=== PATIENT | male | born 1945 | race Caucasian/White ===

== ENCOUNTER → 2016-04-03 | Outpatient (CLI) | payer MEDICARE, OTHER ==
[~2016-04-03] MED LIST: AMLODIPINE BESYL5 MG PO; FARXIGA5 MG PO; FINASTERIDE5 MG PO; HYDROCHLOROTHIA25 MG PO; IRBESARTAN300 MG PO; METFORMIN HCL1000 MG PO; TAMSULOSIN HCL0.4 MG PO; TRULICITY0.75 MG/0. SC
== END | disposition home or self-care (01) ==
LOC: CDC 08:16
DX: R94.31 Abnormal electrocardiogram [ECG] [EKG] (principal); I44.4 Left anterior fascicular block; N40.1 Benign prostatic hyperplasia with lower urinary tract symptoms; N21.0 Calculus in bladder; R31.0 Gross hematuria
CPT/HCPCS: 93000

== ENCOUNTER 2016-04-10 05:10 | Day surgery (SDC) | payer OTHER ==
[~2016-04-10] VITALS: Ht 182.9 cm; Wt 94.4 kg
[2016-04-10] VITALS (8 sets, daily range): BP systolic 134–172; BP diastolic 84–98
[2016-04-10 06:35] LABS: POINT-OF-CARE METER ID UU14174212
[2016-04-11 03:20] VITALS: BP 137/75
[2016-04-11 08:00] VITALS: BP 135/98
== END 2016-04-11 11:48 | disposition home or self-care (01) ==
LOC: SDC 05:10 → 2SOUTH 09:00 → 2EAST 09:00 → SDC 09:48 → 2EAST 18:22
PROVIDERS: Urology
DX: N40.1 Benign prostatic hyperplasia with lower urinary tract symptoms (principal); N32.0 Bladder-neck obstruction; N21.0 Calculus in bladder; N32.3 Diverticulum of bladder; R31.0 Gross hematuria; Z87.440 Personal history of urinary (tract) infections; E11.9 Type 2 diabetes mellitus without complications; Z79.84 Long term (current) use of oral hypoglycemic drugs; F17.210 Nicotine dependence, cigarettes, uncomplicated; Z80.3 Family history of malignant neoplasm of breast; Z82.49 Family history of ischemic heart disease and other diseases of the circulatory system
CPT/HCPCS: 82365 90; 82948; 88305; G0378; J0690; J1580; J2250; J3010; J7050; J7120

== ENCOUNTER 2017-05-12 07:46 | Emergency (ER) | payer OTHER ==
[~2017-05-12] VITALS: Ht 182.9 cm; Wt 101.2 kg
[2017-05-12] MEDS ORDERED: MOTRIN600 MG PO (10:16)
[2017-05-12 11:12] VITALS: BP 131/74
== END 2017-05-12 11:13 | disposition home or self-care (01) ==
LOC: EME 07:46
DX: S22.32XA Fracture of one rib, left side, initial encounter for closed fracture (principal); S27.329A Contusion of lung, unspecified, initial encounter; W18.30XA Fall on same level, unspecified, initial encounter; E78.5 Hyperlipidemia, unspecified; E11.9 Type 2 diabetes mellitus without complications; Z79.84 Long term (current) use of oral hypoglycemic drugs; I10 Essential (primary) hypertension; F17.200 Nicotine dependence, unspecified, uncomplicated
CPT/HCPCS: 71046; 71250; 99281; 99284; J1885

== ENCOUNTER → 2017-08-12 | Outpatient (CLI) | payer MEDICARE, OTHER ==
[~2017-08-12] MED LIST changes: +MOTRIN600 MG PO
== END | disposition home or self-care (01) ==
LOC: CDC 08:12
DX: Z01.810 Encounter for preprocedural cardiovascular examination (principal); N20.0 Calculus of kidney; R94.31 Abnormal electrocardiogram [ECG] [EKG]
CPT/HCPCS: 93000

== ENCOUNTER 2017-08-23 05:41 | Inpatient (IN) | payer OTHER ==
[~2017-08-23] VITALS: Ht 182.9 cm; Wt 98.9 kg
[~2017-08-23 05:41] MED LIST changes: -TRULICITY0.75 MG/0. SC; +TRULICITY1.5 MG/0.5 SC
[2017-08-23 06:19] LABS: HEMATOCRIT 40.2 % (38.0-50.0); HEMOGLOBIN 13.7 G/DL (12.5-16.6); MCH 30.4 PG (29.0-34.0); MCHC 34.1 G/DL (30.0-36.0); MCV 89.3 FL (86-99); PLATELET COUNT 256 K/uL (156-360); RBC DIS.WIDTH-CV 13.8 % (11.8-14.6); RBC DIS.WIDTH-SD 45.1 % (39-53); WHITE BLOOD COUNT 22.2 K/uL (4.1-10.2)
[2017-08-23 06:27] LABS: CHLORIDE 99 mEq/L (99-109); POTASSIUM 4.1 mEq/L (3.7-5.4); SODIUM 137 mEq/L (136-147)
[2017-08-23 06:29] LABS: GLUCOSE 292 mg/dL (70-99); TOTAL PROTEIN 6.3 g/dL (6.4-8.3)
[2017-08-23 06:31] LABS: TOTAL BILIRUBIN 0.7 mg/dL (0.0-1.0)
[2017-08-23 06:33] LABS: ALKALINE PHOSPHATASE 61 IU/L (3-129); GFR ESTIMATE (CALCULATED) 35 mL/min/ (58.99-99999)
[2017-08-23 06:34] LABS: UREA NITROGEN (BUN) 30 mg/dL (9-23)
[2017-08-23 06:35] LABS: AST (GOT) 20 IU/L (2-34)
[2017-08-23 06:36] LABS: ALT (GPT) 34 IU/L (3-49); LIPASE 34 U/L (1.0-51.0)
[2017-08-23 06:39] LABS: TROP-I INTERPRETATION NEGATIVE; TROPONIN-I 0.03 ng/mL (0.0-0.30)
[2017-08-23] MEDS ORDERED: GLIPIZIDE XL5 MG PO (08:26)
[2017-08-23] MEDS ORDERED: LIPITOR20 MG PO (08:27)
[2017-08-23] MEDS ORDERED: COZAAR50 MG PO (08:27)
[2017-08-23 09:14] LABS: APPEARANCE SL.HAZY ((CLEAR)); BILIRUBIN NEGATIVE; BLOOD LARGE; COLOR YELLOW ((YELLOW)); GLUCOSE (STRIP) >=500; KETONES NEGATIVE; LEUKOCYTES MODERATE; NITRITE NEGATIVE; PROTEIN (STRIP) 30; UROBILINOGEN 0.2 MG/DL (0.2-1.0)
[2017-08-23 09:20] LABS: BACTERIA RARE /HPF; CALCIUM OXALATE CRYSTALS 2+ /HPF; EPITHELIAL CELLS RARE /HPF; MUCUS TRACE /LPF; RED BLOOD CELLS TNTC /HPF (0-5); UCUL ADDED? YES; URIC ACID CRYSTALS 1+ /HPF; WHITE BLOOD CELLS TNTC /HPF (0-5)
[2017-08-23 10:00] VITALS: BP 158/97
[2017-08-23 12:17] LABS: HEMATOCRIT 35.3 % (38.0-50.0); HEMOGLOBIN 11.9 G/DL (12.5-16.6); MCH 29.8 PG (29.0-34.0); MCHC 33.7 G/DL (30.0-36.0); MCV 88.5 FL (86-99); PLATELET COUNT 218 K/uL (156-360); RBC DIS.WIDTH-CV 13.7 % (11.8-14.6); RBC DIS.WIDTH-SD 44.3 % (39-53); RED BLOOD COUNT 3.99 M/uL (4.00-5.50); WHITE BLOOD COUNT 19.6 K/uL (4.1-10.2)
[2017-08-23 14:38] VITALS: BP 129/77
[2017-08-23 16:26] VITALS: BP 128/81
[2017-08-23 17:52] LABS: HEMATOCRIT 32.7 % (38.0-50.0); HEMOGLOBIN 11.1 G/DL (12.5-16.6); MCH 29.8 PG (29.0-34.0); MCHC 33.9 G/DL (30.0-36.0); MCV 87.9 FL (86-99); PLATELET COUNT 205 K/uL (156-360); RBC DIS.WIDTH-CV 13.7 % (11.8-14.6); RED BLOOD COUNT 3.72 M/uL (4.00-5.50); WHITE BLOOD COUNT 15.2 K/uL (4.1-10.2)
[2017-08-23 19:09] VITALS: BP 130/81
[2017-08-23 22:33] VITALS: BP 143/82
[2017-08-24 00:41] LABS: HEMATOCRIT 30.5 % (38.0-50.0); HEMOGLOBIN 10.6 G/DL (12.5-16.6); MCH 30.8 PG (29.0-34.0); MCHC 34.8 G/DL (30.0-36.0); MCV 88.7 FL (86-99); PLATELET COUNT 191 K/uL (156-360); RBC DIS.WIDTH-CV 13.8 % (11.8-14.6); RBC DIS.WIDTH-SD 44.7 % (39-53); RED BLOOD COUNT 3.44 M/uL (4.00-5.50); WHITE BLOOD COUNT 13.8 K/uL (4.1-10.2)
[2017-08-24 03:24] VITALS: BP 154/90
[2017-08-24 05:27] LABS: HEMATOCRIT 32.8 % (38.0-50.0); HEMOGLOBIN 11.2 G/DL (12.5-16.6); MCHC 34.1 G/DL (30.0-36.0); MCV 87.9 FL (86-99); PLATELET COUNT 210 K/uL (156-360); RBC DIS.WIDTH-CV 13.9 % (11.8-14.6); RBC DIS.WIDTH-SD 44.5 % (39-53); RED BLOOD COUNT 3.73 M/uL (4.00-5.50); WHITE BLOOD COUNT 14.2 K/uL (4.1-10.2)
[2017-08-24 06:01] LABS: CHLORIDE 109 MEQ/L (99-109); POTASSIUM 4.1 MEQ/L (3.7-5.4); SODIUM 141 MEQ/L (136-147); UREA NITROGEN (BUN) 19 mg/dL (9-23)
[2017-08-24 06:17] LABS: CREATININE 1.1 MG/DL (0.6-1.3); GFR ESTIMATE (CALCULATED) > 59 mL/min/ (58.99-99999); GLUCOSE 143 mg/dL (70-99)
[2017-08-24 07:01] VITALS: BP 160/90
[2017-08-24 11:11] VITALS: BP 132/79
[2017-08-24 13:20] LABS: HEMATOCRIT 30.7 % (38.0-50.0); HEMOGLOBIN 10.4 G/DL (12.5-16.6); MCH 30.1 PG (29.0-34.0); MCHC 33.9 G/DL (30.0-36.0); MCV 88.7 FL (86-99); PLATELET COUNT 185 K/uL (156-360); RBC DIS.WIDTH-SD 45.5 % (39-53); RED BLOOD COUNT 3.46 M/uL (4.00-5.50); WHITE BLOOD COUNT 12.7 K/uL (4.1-10.2)
[2017-08-24 15:15] VITALS: BP 140/83
[2017-08-24 17:51] LABS: HEMATOCRIT 30.6 % (38.0-50.0); HEMOGLOBIN 10.5 G/DL (12.5-16.6); MCH 30.4 PG (29.0-34.0); MCHC 34.3 G/DL (30.0-36.0); MCV 88.7 FL (86-99); PLATELET COUNT 186 K/uL (156-360); RBC DIS.WIDTH-CV 13.8 % (11.8-14.6); RBC DIS.WIDTH-SD 44.8 % (39-53); RED BLOOD COUNT 3.45 M/uL (4.00-5.50); WHITE BLOOD COUNT 13.1 K/uL (4.1-10.2)
[2017-08-24 19:21] VITALS: BP 143/85
[2017-08-24 23:20] VITALS: BP 142/89
[2017-08-25 00:42] LABS: HEMATOCRIT 28.5 % (38.0-50.0); HEMOGLOBIN 9.8 G/DL (12.5-16.6); MCH 30.7 PG (29.0-34.0); MCHC 34.4 G/DL (30.0-36.0); MCV 89.3 FL (86-99); PLATELET COUNT 181 K/uL (156-360); RBC DIS.WIDTH-CV 13.8 % (11.8-14.6); RBC DIS.WIDTH-SD 45.4 % (39-53); RED BLOOD COUNT 3.19 M/uL (4.00-5.50); WHITE BLOOD COUNT 12.4 K/uL (4.1-10.2)
[2017-08-25 03:48] VITALS: BP 138/85
[2017-08-25 06:41] LABS: HEMATOCRIT 31.1 % (38.0-50.0); HEMOGLOBIN 10.4 G/DL (12.5-16.6); MCH 29.9 PG (29.0-34.0); MCHC 33.4 G/DL (30.0-36.0); MCV 89.4 FL (86-99); PLATELET COUNT 190 K/uL (156-360); RBC DIS.WIDTH-CV 13.9 % (11.8-14.6); RED BLOOD COUNT 3.48 M/uL (4.00-5.50)
[2017-08-25 07:39] VITALS: BP 161/95
[2017-08-25 11:39] VITALS: BP 127/84
[2017-08-25 13:27] LABS: HEMATOCRIT 31.9 % (38.0-50.0); HEMOGLOBIN 10.5 G/DL (12.5-16.6); MCH 29.7 PG (29.0-34.0); MCHC 32.9 G/DL (30.0-36.0); MCV 90.4 FL (86-99); PLATELET COUNT 207 K/uL (156-360); RBC DIS.WIDTH-SD 45.9 % (39-53); RED BLOOD COUNT 3.53 M/uL (4.00-5.50); WHITE BLOOD COUNT 12.9 K/uL (4.1-10.2)
[2017-08-25 16:25] VITALS: BP 149/91
[2017-08-25 18:16] LABS: HEMATOCRIT 30.8 % (38.0-50.0); HEMOGLOBIN 10.3 G/DL (12.5-16.6); MCH 29.9 PG (29.0-34.0); MCHC 33.4 G/DL (30.0-36.0); MCV 89.3 FL (86-99); PLATELET COUNT 207 K/uL (156-360); RBC DIS.WIDTH-CV 13.8 % (11.8-14.6); RBC DIS.WIDTH-SD 45.2 % (39-53); RED BLOOD COUNT 3.45 M/uL (4.00-5.50); WHITE BLOOD COUNT 12.3 K/uL (4.1-10.2)
[2017-08-25 19:27] VITALS: BP 158/85
[2017-08-25 23:30] VITALS: BP 158/85
[2017-08-26 02:56] VITALS: BP 154/84
[2017-08-26 07:16] VITALS: BP 133/86
[2017-08-26 15:52] VITALS: BP 124/73
[2017-08-26] MEDS ORDERED: LOSARTAN POTAS100 MG PO (16:16)
[2017-08-26] MEDS ORDERED: TYLENOL REGULA325 MG PO (16:18)
== END 2017-08-26 17:44 | disposition home or self-care (01) | DRG 699 ==
LOC: EME → EDBD 05:41 → EME 05:41 → EDOF 08:08 → 5EAST 08:08 → ENRESERV 08:25 → 5EAST 09:46
PROVIDERS: Emergency Medicine; Family Medicine; Nurse Practitioner Adult Health
DX: S37.012A Minor contusion of left kidney, initial encounter (principal); N39.0 Urinary tract infection, site not specified; I95.9 Hypotension, unspecified; E11.9 Type 2 diabetes mellitus without complications; B95.2 Enterococcus as the cause of diseases classified elsewhere; R09.02 Hypoxemia; I10 Essential (primary) hypertension; E78.5 Hyperlipidemia, unspecified; N40.1 Benign prostatic hyperplasia with lower urinary tract symptoms; F17.200 Nicotine dependence, unspecified, uncomplicated; W18.30XA Fall on same level, unspecified, initial encounter; Y92.009 Unspecified place in unspecified non-institutional (private) residence as the place of occurrence of the external cause; Z87.440 Personal history of urinary (tract) infections; Z87.442 Personal history of urinary calculi; Z79.84 Long term (current) use of oral hypoglycemic drugs
CPT/HCPCS: 70450; 71045; 71046; 74176; 80048; 80053; 81003; 82948; 83605; 83690; 84484; 85014; 85018; 85027; 87040; 87077; 87086; 87186; 93005; 94799; 99281; 99285; J0290; J1885; J2405; J2543; J3370; J7030; J7050; J7120